=== PATIENT | female | born 1955 | race Caucasian/White ===

== ENCOUNTER 2017-05-27 13:24 | Emergency (ER) | payer MEDICAID ==
[~2017-05-27] VITALS: Ht 165.1 cm; Wt 89.0 kg
[~2017-05-27 13:24] MED LIST: HYDR-4001 PO; HYDR-4009 PO; HYDR25TA PO; LISI-604 PO; METF500T4 PO; SIMV20TA6 PO
[2017-05-27] MEDS ORDERED: METHYLPREDNISOLONE SOD SUCC 125 MG/2 ML VIAL IV ONE (15:00)
[2017-05-27 16:48] VITALS: BP 107/68
== END 2017-05-27 16:51 | disposition home or self-care (01) ==
LOC: ER 13:24
DX: R07.89 Other chest pain (principal); R06.02 Shortness of breath; L53.9 Erythematous condition, unspecified; T38.0X5A Adverse effect of glucocorticoids and synthetic analogues, initial encounter; T41.3X5A Adverse effect of local anesthetics, initial encounter; I10 Essential (primary) hypertension; E11.9 Type 2 diabetes mellitus without complications; Z87.891 Personal history of nicotine dependence; Y92.89 Other specified places as the place of occurrence of the external cause
CPT/HCPCS: 93005; 96374; 99284; J2930; Z7610

== ENCOUNTER → 2018-01-19 | Day surgery (SDC) | payer MEDICARE, MEDICAID ==
[~2018-01-19] VITALS: Ht 165.1 cm; Wt 87.1 kg
[~2018-01-19] MED LIST changes: +BUPIVACAINE HCL/EPINEPHRINE/PF 0.5%/0.0005 10ML ONE; +FENTANYL CITRATE/PF 50MCG/ML 2ML VIAL ONE; +LACTATED RINGERS 1,000 ML IV SCH; +MORPHINE SULFATE 4 MG/ML CPJ (NOT FOR IM USE) IV ONE; +MORPHINE SULFATE/PF 1MG/ML 10ML AMP ONE; +PROPOFOL 200MG/20ML VIAL IV ONE; +SODIUM CHLORIDE 0.9% 1,000 ML IV SCH
[2018-01-19] MEDS: MORPHINE SULFATE 4 MG/ML CPJ (NOT FOR IM USE) IV PRN ×2 (09:28→09:48)
[2018-01-19 09:48] VITALS: BP 124/80
== END | disposition home or self-care (01) ==
LOC: OR 05:29
PROVIDERS: ATTEND Orthopaedic Surgery
DX: M65.861 Other synovitis and tenosynovitis, right lower leg (principal); M94.261 Chondromalacia, right knee; I10 Essential (primary) hypertension; F41.8 Other specified anxiety disorders; E11.65 Type 2 diabetes mellitus with hyperglycemia; Z79.84 Long term (current) use of oral hypoglycemic drugs; Z96.652 Presence of left artificial knee joint; Z87.891 Personal history of nicotine dependence; Z79.899 Other long term (current) drug therapy; Z90.49 Acquired absence of other specified parts of digestive tract
CPT/HCPCS: 29877; 82962; 88304; 88311; 97116; 97162; J0171; J2270; J3010; J7030; L1830; J2274; J2704

== ENCOUNTER 2018-12-15 23:42 | Inpatient (IN) | payer MEDICARE, MEDICAID ==
[~2018-12-15] VITALS: Ht 165.1 cm; Wt 87.1 kg
[~2018-12-15 23:42] MED LIST changes: -BUPIVACAINE HCL/EPINEPHRINE/PF 0.5%/0.0005 10ML ONE; -FENTANYL CITRATE/PF 50MCG/ML 2ML VIAL ONE; -LACTATED RINGERS 1,000 ML IV SCH; +METF-414 PO; -METF500T4 PO; -MORPHINE SULFATE 4 MG/ML CPJ (NOT FOR IM USE) IV ONE; -MORPHINE SULFATE/PF 1MG/ML 10ML AMP ONE; -PROPOFOL 200MG/20ML VIAL IV ONE; -SODIUM CHLORIDE 0.9% 1,000 ML IV SCH
[2018-12-16 03:21] LABS: BASOPHILS % 0.9 % (0.0-2.0); EOSINOPHILS % 2.7 % (0.0-5.0); HEMATOCRIT. 37.4 % (36.0-48.0); HEMOGLOBIN. 12.8 g/dL (12.0-16.0); LYMPHOCYTES % 25.2 % (20.0-50.0); MEAN CORPUSCULAR HEMOGLOBIN 31.8 pg (28.0-32.0); MEAN CORPUSCULAR VOLUME 93.2 fL (81.0-99.0); MEAN PLATELET VOLUME 9.5 fl (7.4-10.4); MONOCYTES % 8.8 % (2.0-8.0); NEUTROPHILS % 62.4 % (40.0-76.0); PLATELET 164 x1000/uL (130-400); RED BLOOD CELL COUNT 4.01 mill/uL (4.2-5.4); RED CELL DISTRIBUTION WIDTH 13.3 % (11.6-14.6)
[2018-12-16 03:24] LABS: CHLORIDE 106 mEq/L (98-107)
[2018-12-16 03:29] LABS: ETHANOL BLOOD < 10 mg/dL
[2018-12-16] MEDS ORDERED: MORPHINE SULFATE 4 MG/ML CPJ (NOT FOR IM USE) IV ONE (04:45)
[2018-12-16] MEDS ORDERED: ACETAMINOPHEN 325MG TABLET PO PRN (07:45)
[2018-12-16] MEDS ORDERED: DIPHENHYDRAMINE 50MG/ML VIAL IV PRN (07:45)
[2018-12-16] MEDS ORDERED: DOCUSATE SODIUM 100MG CAPSULE PO PRN (07:45)
[2018-12-16] MEDS ORDERED: HYDRALAZINE 20MG/ML VIAL IV PRN (07:45)
[2018-12-16] MEDS ORDERED: GUAIFENESIN 200MG/10ML SUGAR FREE UDC PO PRN (07:45)
[2018-12-16] MEDS ORDERED: IPRATROPIUM/ALBUTEROL 0.5-3(2.5)MG/3ML NEB INH PRN (07:45)
[2018-12-16] MEDS ORDERED: DEXTROSE 50% WATER 50ML SYRINGE IV PRN (07:45)
[2018-12-16] MEDS ORDERED: CLONIDINE 0.1MG TABLET PO PRN (07:45)
[2018-12-16] MEDS ORDERED: LORAZEPAM 2MG/ML CPJ IV PRN (07:45)
[2018-12-16] MEDS ORDERED: ONDANSETRON HCL 4MG/2ML INJ IV PRN (07:45)
[2018-12-16] MEDS ORDERED: MAGNESIUM/ALUMINUM HYDROXIDE/SIMETHICONE 30ML UDC PO PRN (07:45)
[2018-12-16] MEDS: HYDROCODONE/ACETAMINOPHEN 10/325MG TABLET PO PRN ×3 (09:50→22:48)
[2018-12-16] MEDS ORDERED: GADOBENATE DIMEGLUMINE 529 MG/ML 10ML IV ONE (11:55)
[2018-12-16] MEDS ORDERED: HYDROMORPHONE HCL/PF 2MG/ML CPJ IV PRN (17:00)
[2018-12-16 21:00] VITALS: BP 126/76
[2018-12-16] MEDS: INSULIN LISPRO 100 UNITS/ML SUBCUT SCH (21:00)
[2018-12-16] MEDS ORDERED: NA PHOS,M-B/NA PHOS,DI-BA ENEMA 118ML PR PRN (21:00)
[2018-12-16] MEDS: BLOOD SUGAR DIAGNOSTIC STRIP TEST SCH (21:00)
[2018-12-16] MEDS ORDERED: ENOXAPARIN 40MG/0.4ML SYR SUBCUT SCH (21:00)
[2018-12-16 21:42] VITALS: BP 136/66
[2018-12-17] VITALS: BP 127/76
[2018-12-17 04:00] VITALS: BP 121/75
[2018-12-17] MEDS: SODIUM CHLORIDE 0.9% INJ 3ML FLUSH IVF SCH ×3 (06:36→13:19)
[2018-12-17] MEDS: HYDROCODONE/ACETAMINOPHEN 10/325MG TABLET PO PRN ×3 (06:36→18:48)
[2018-12-17] MEDS: BLOOD SUGAR DIAGNOSTIC STRIP TEST SCH ×4 (07:20→21:00)
[2018-12-17] MEDS: INSULIN LISPRO 100 UNITS/ML SUBCUT SCH ×4 (07:50→21:00)
[2018-12-17 08:00] VITALS: BP 119/74
[2018-12-17] MEDS: ASPIRIN 81MG EC TABLET PO SCH (09:37)
[2018-12-17 10:01] LABS: BASOPHILS % 0.6 % (0.0-2.0); EOSINOPHILS % 1.9 % (0.0-5.0); HEMATOCRIT. 34.7 % (36.0-48.0); HEMOGLOBIN. 12.3 g/dL (12.0-16.0); MEAN CORPUSCULAR HEMOGLOBIN 32.8 pg (28.0-32.0); MEAN CORPUSCULAR VOLUME 92.7 fL (81.0-99.0); MEAN PLATELET VOLUME 10.5 fl (7.4-10.4); MONOCYTES % 7.6 % (2.0-8.0); NEUTROPHILS % 68.9 % (40.0-76.0); PLATELET 140 x1000/uL (130-400); RED BLOOD CELL COUNT 3.74 mill/uL (4.2-5.4); RED CELL DISTRIBUTION WIDTH 13.2 % (11.6-14.6)
[2018-12-17 10:12] LABS: CHLORIDE 103 mEq/L (98-107)
[2018-12-17 12:47] VITALS: BP 119/70
[2018-12-17 16:00] VITALS: BP 121/68
[2018-12-17 20:00] VITALS: BP 133/73
[2018-12-17] MEDS: ENOXAPARIN 30MG/0.3ML SYR SUBCUT SCH (22:29)
[2018-12-18] VITALS: BP 113/74
[2018-12-18 06:00] VITALS: BP 102/68
[2018-12-18] MEDS: BLOOD SUGAR DIAGNOSTIC STRIP TEST SCH ×3 (07:20→17:53)
[2018-12-18] MEDS: INSULIN LISPRO 100 UNITS/ML SUBCUT SCH ×3 (07:50→17:50)
[2018-12-18 08:00] VITALS: BP 107/64
[2018-12-18] MEDS: ENOXAPARIN 30MG/0.3ML SYR SUBCUT SCH (08:57)
[2018-12-18] MEDS: ASPIRIN 81MG EC TABLET PO SCH (08:57)
[2018-12-18] MEDS: HYDROCODONE/ACETAMINOPHEN 10/325MG TABLET PO PRN (11:11)
[2018-12-18 12:00] VITALS: BP 127/76
[2018-12-18 12:09] VITALS: BP 121/76
[2018-12-18 16:26] VITALS: BP 114/65
== END 2018-12-18 18:05 | disposition home health service (06) | DRG 552 ==
LOC: ER 23:42 → 6EST 12-16 04:50 → ENRESERV 12-16 19:14
PROVIDERS: ADMIT Internal Medicine; ATTEND Internal Medicine
DX: M54.40 Lumbago with sciatica, unspecified side (principal); C79.51 Secondary malignant neoplasm of bone; G89.29 Other chronic pain; E11.39 Type 2 diabetes mellitus with other diabetic ophthalmic complication; H42 Glaucoma in diseases classified elsewhere; Z96.659 Presence of unspecified artificial knee joint; I10 Essential (primary) hypertension; E78.5 Hyperlipidemia, unspecified; R74.0 Nonspecific elevation of levels of transaminase and lactic acid dehydrogenase [LDH]; W18.30XA Fall on same level, unspecified, initial encounter; Y93.89 Activity, other specified; Y92.89 Other specified places as the place of occurrence of the external cause; Y99.8 Other external cause status; Z85.3 Personal history of malignant neoplasm of breast; Z92.21 Personal history of antineoplastic chemotherapy; Z92.3 Personal history of irradiation; Z87.891 Personal history of nicotine dependence; Z88.8 Allergy status to other drugs, medicaments and biological substances; Z79.899 Other long term (current) drug therapy
CPT/HCPCS: 36415; 72100; 72156; 72157; 72158; 73610; 73630; 80320; 82962; 93970; 97163; 99285; A9577; J1650; J1815; G0480

== ENCOUNTER 2018-12-22 11:48 | Inpatient (IN) | payer MEDICARE, MEDICAID ==
[~2018-12-22] VITALS: Ht 162.6 cm; Wt 94.3 kg
[2018-12-22 12:52] LABS: BASOPHILS % 0.8 % (0.0-2.0); HEMATOCRIT. 27.2 % (36.0-48.0); HEMOGLOBIN. 9.6 g/dL (12.0-16.0); LYMPHOCYTES % 18.4 % (20.0-50.0); MEAN CORPUSCULAR HEMOGLOBIN 32.5 pg (28.0-32.0); MONOCYTES % 6.9 % (2.0-8.0); NEUTROPHILS % 71.9 % (40.0-76.0); PLATELET 114 x1000/uL (130-400); RED BLOOD CELL COUNT 2.96 mill/uL (4.2-5.4); RED CELL DISTRIBUTION WIDTH 13.3 % (11.6-14.6)
[2018-12-22 12:56] LABS: CHLORIDE 118 mEq/L (98-107)
[2018-12-22] MEDS ORDERED: MORPHINE SULFATE 4 MG/ML CPJ (NOT FOR IM USE) IV ONE (13:00)
[2018-12-22 13:02] LABS: CLARITY URINE CLOUDY (CLEAR); COLOR URINE YELLOW (YELLOW); KETONES URINE NEGATIVE (NEGATIVE); LEUKOCYTE ESTERASE URINE TRACE (NEGATIVE); NITRITE URINE NEGATIVE (NEGATIVE); OCCULT BLOOD URINE 1+ (NEGATIVE); PROTEIN URINE NEGATIVE (NEGATIVE); SPECIFIC GRAVITY URINE 1.014 (1.005-1.030); UROBILINOGEN URINE 0.2 E.U./dL (0.2-1.0)
[2018-12-22 13:07] LABS: INR 1.2; PROTHROMBIN TIME 12.3 sec (9.6-11.0)
[2018-12-22] MEDS ORDERED: POTASSIUM CHLORIDE 20MEQ TABLET SR PO ONE (13:30)
[2018-12-22] MEDS: DEXT 5%/LACTATED RINGERS 1,000 ML IV SCH (13:33)
[2018-12-22] MEDS ORDERED: NITROGLYCERIN 0.4MG TABLET SL SL PRN (14:45)
[2018-12-22] MEDS ORDERED: GUAIFENESIN 200MG/10ML SUGAR FREE UDC PO PRN (14:45)
[2018-12-22] MEDS ORDERED: ONDANSETRON HCL 4MG/2ML INJ IV PRN (14:45)
[2018-12-22] MEDS ORDERED: DEXTROSE 50% WATER 50ML SYRINGE IV PRN (14:45)
[2018-12-22] MEDS ORDERED: CLONIDINE 0.1MG TABLET PO PRN (14:45)
[2018-12-22] MEDS ORDERED: KETOROLAC 15MG/ML VIAL IV PRN (14:45)
[2018-12-22] MEDS ORDERED: IPRATROPIUM/ALBUTEROL 0.5-3(2.5)MG/3ML NEB INH PRN (14:45)
[2018-12-22] MEDS ORDERED: DOCUSATE SODIUM 100MG CAPSULE PO PRN (14:45)
[2018-12-22] MEDS ORDERED: TRAMADOL 50MG TABLET PO PRN (14:45)
[2018-12-22] MEDS ORDERED: ACETAMINOPHEN 325MG TABLET PO PRN (14:45)
[2018-12-22] MEDS ORDERED: LORAZEPAM 0.5MG TABLET PO PRN (14:45)
[2018-12-22] MEDS ORDERED: MAGNESIUM/ALUMINUM HYDROXIDE/SIMETHICONE 30ML UDC PO PRN (14:45)
[2018-12-22] MEDS ORDERED: ZOLPIDEM TARTRATE 5MG TABLET PO PRN (14:45)
[2018-12-22] MEDS ORDERED: MORPHINE SULFATE 4 MG/ML CPJ (NOT FOR IM USE) IV PRN (14:45)
[2018-12-22 15:57] VITALS: BP 153/78
[2018-12-22 16:00] VITALS: BP 153/78
[2018-12-22] MEDS ORDERED: BISACODYL 5MG TABLET PO PRN (16:15)
[2018-12-22] MEDS ORDERED: ENOXAPARIN 40MG/0.4ML SYR SUBCUT SCH (17:00)
[2018-12-22] MEDS: BLOOD SUGAR DIAGNOSTIC STRIP TEST SCH ×2 (17:20→20:56)
[2018-12-22] MEDS: INSULIN LISPRO 100 UNITS/ML SUBCUT SCH ×2 (17:50→20:57)
[2018-12-22] MEDS ORDERED: CEFTRIAXONE 1 G PREMIX 50 ML IV SCH (18:00)
[2018-12-22 19:58] VITALS: BP 143/79
[2018-12-22] MEDS: FAMOTIDINE 20MG TABLET PO SCH (20:56)
[2018-12-22] MEDS: HYDROCODONE/ACETAMINOPHEN 10/325MG TABLET PO PRN (20:56)
[2018-12-23] VITALS (41 sets, daily range): BP systolic 2–165; BP diastolic 0–136
[2018-12-23] MEDS: DEXT 5%/LACTATED RINGERS 1,000 ML IV SCH ×3 (00:41→22:08)
[2018-12-23] MEDS: BLOOD SUGAR DIAGNOSTIC STRIP TEST SCH ×4 (05:33→20:35)
[2018-12-23] MEDS ORDERED: NORMAL SALINE 0.9% 10 ML SYR ONE (06:20)
[2018-12-23] MEDS ORDERED: THROMBIN (BOVINE) 5000 UNITS/VIAL TOP ONE (06:20)
[2018-12-23] MEDS ORDERED: LIDOCAINE HCL/EPINEPHRINE 1%-EPI 1:100,000 20 ML VIAL ONE (06:21)
[2018-12-23] MEDS ORDERED: BACITRACIN 50,000 UNITS/VIAL ONE (06:21)
[2018-12-23 06:49] LABS: CHLORIDE 107 mEq/L (98-107)
[2018-12-23] MEDS ORDERED: MIDAZOLAM HCL 2 MG/2 ML VIAL ONE (06:54)
[2018-12-23] MEDS ORDERED: PROPOFOL 200MG/20ML VIAL IV ONE (06:54)
[2018-12-23] MEDS ORDERED: GLYCOPYRROLATE 0.2 MG/ML 2ML VIAL ONE ×2 (06:54→09:49)
[2018-12-23] MEDS ORDERED: NEOSTIGMINE METHYLSULFATE 1MG/ML 10 ML VIAL ONE (06:54)
[2018-12-23] MEDS ORDERED: FENTANYL CITRATE/PF 50MCG/ML 2ML VIAL ONE (06:54)
[2018-12-23] MEDS ORDERED: ROCURONIUM BROMIDE 10MG/ML VIAL 5ML IV ONE (06:54)
[2018-12-23] MEDS ORDERED: ONDANSETRON HCL 4MG/2ML INJ ONE (06:55)
[2018-12-23] MEDS ORDERED: DEXAMETHASONE 4MG/ML 1ML VIAL ONE (06:55)
[2018-12-23] MEDS ORDERED: LIDOCAINE HCL/PF 1% 10 MG/ML 5ML VIAL ONE (06:55)
[2018-12-23] MEDS ORDERED: HYDROMORPHONE HCL/PF 2MG/ML (OR) ONE ×2 (07:54→09:38)
[2018-12-23] MEDS ORDERED: HYDROMORPHONE HCL/PF 2MG/ML CPJ IV PRN (08:45)
[2018-12-23] MEDS ORDERED: ONDANSETRON HCL 4MG/2ML INJ IV PRN (08:45)
[2018-12-23] MEDS ORDERED: MEPERIDINE HCL/PF 25MG/ML CPJ IV PRN (08:45)
[2018-12-23] MEDS ORDERED: LABETALOL 5MG/ML SYR 20 MG/4 ML SYRINGE IV PRN (08:45)
[2018-12-23] MEDS: FAMOTIDINE 20MG TABLET PO SCH ×2 (09:00→20:34)
[2018-12-23] MEDS ORDERED: CEFAZOLIN SODIUM 1000MG/VIAL ONE (09:42)
[2018-12-23] MEDS ORDERED: SODIUM CHLORIDE 0.9% 10ML VIAL ONE (09:42)
[2018-12-23] MEDS ORDERED: LABETALOL HCL 5MG/ML VIAL 20ML IV ONE (09:55)
[2018-12-23] MEDS ORDERED: MORPHINE SULFATE 4 MG/ML CPJ (NOT FOR IM USE) IV PRN (10:00)
[2018-12-23] MEDS ORDERED: NICARDIPINE 100 MG in SODIUM CHLORIDE 0.9% 60 ML IV PRN (10:00)
[2018-12-23] MEDS: DOCUSATE SODIUM 100MG CAPSULE PO SCH (10:45)
[2018-12-23] MEDS ORDERED: NALOXONE INJ IV PRN (10:45)
[2018-12-23] MEDS ORDERED: HYDROMORPHONE PCA 10MG/50ML IV PRN (10:45)
[2018-12-23] MEDS ORDERED: ONDANSETRON INJ IV PRN (10:45)
[2018-12-23] MEDS ORDERED: DIPHENHYDRAMINE INJ IV PRN (10:45)
[2018-12-23] MEDS: INSULIN LISPRO 100 UNITS/ML SUBCUT SCH ×3 (11:59→20:36)
[2018-12-23] MEDS ORDERED: CEFAZOLIN SODIUM 1000MG/VIAL IV SCH (14:00)
[2018-12-23] MEDS: CEFAZOLIN 1000MG PREMIX 50 ML IV SCH ×2 (14:17→21:29)
[2018-12-23] MEDS: CEFTRIAXONE 1 G PREMIX 50 ML IV SCH (18:55)
[2018-12-24] VITALS (44 sets, daily range): BP systolic 73–279; BP diastolic 27–279
[2018-12-24] MEDS: DEXT 5%/LACTATED RINGERS 1,000 ML IV SCH ×3 (01:22→20:50)
[2018-12-24] MEDS: BLOOD SUGAR DIAGNOSTIC STRIP TEST SCH ×4 (06:39→20:49)
[2018-12-24 06:54] LABS: BASOPHILS % 0.3 % (0.0-2.0); EOSINOPHILS % 0.1 % (0.0-5.0); HEMATOCRIT. 27.9 % (36.0-48.0); HEMOGLOBIN. 9.9 g/dL (12.0-16.0); LYMPHOCYTES % 16.1 % (20.0-50.0); MEAN CORPUSCULAR HEMOGLOBIN 32.2 pg (28.0-32.0); MEAN PLATELET VOLUME 10.1 fl (7.4-10.4); MONOCYTES % 8.2 % (2.0-8.0); NEUTROPHILS % 75.3 % (40.0-76.0); PLATELET 118 x1000/uL (130-400); RED BLOOD CELL COUNT 3.07 mill/uL (4.2-5.4); RED CELL DISTRIBUTION WIDTH 12.9 % (11.6-14.6)
[2018-12-24 07:06] LABS: CHLORIDE 109 mEq/L (98-107)
[2018-12-24] MEDS: CEFAZOLIN 1000MG PREMIX 50 ML IV SCH ×3 (07:16→21:41)
[2018-12-24] MEDS: INSULIN LISPRO 100 UNITS/ML SUBCUT SCH ×4 (07:17→20:49)
[2018-12-24] MEDS: FAMOTIDINE 20MG TABLET PO SCH ×2 (09:08→20:48)
[2018-12-24] MEDS: DOCUSATE SODIUM 100MG CAPSULE PO SCH (09:08)
[2018-12-24] MEDS: HYDROCODONE/ACETAMINOPHEN 10/325MG TABLET PO PRN ×2 (13:09→20:48)
[2018-12-24] MEDS: CEFTRIAXONE 1 G PREMIX 50 ML IV SCH (17:17)
[2018-12-25] VITALS (18 sets, daily range): BP systolic 98–140; BP diastolic 36–98
[2018-12-25] MEDS: BLOOD SUGAR DIAGNOSTIC STRIP TEST SCH ×4 (05:54→21:00)
[2018-12-25] MEDS: CEFAZOLIN 1000MG PREMIX 50 ML IV SCH ×2 (06:11→13:56)
[2018-12-25] MEDS: INSULIN LISPRO 100 UNITS/ML SUBCUT SCH ×5 (06:12→21:00)
[2018-12-25] MEDS: DOCUSATE SODIUM 100MG CAPSULE PO SCH (09:46)
[2018-12-25] MEDS: FAMOTIDINE 20MG TABLET PO SCH ×2 (09:46→21:12)
[2018-12-25] MEDS: HYDROCODONE/ACETAMINOPHEN 10/325MG TABLET PO PRN ×2 (09:52→18:29)
[2018-12-25] MEDS ORDERED: MORPHINE SULFATE 4 MG/ML CPJ (NOT FOR IM USE) IV SCH (10:30)
[2018-12-25] MEDS ORDERED: LIDOCAINE HCL 1% 20ML VIAL (Pyxis) INJ ONE (10:41)
[2018-12-25] MEDS: CEFTRIAXONE 1 G PREMIX 50 ML IV SCH (18:12)
[2018-12-26] VITALS: BP 129/75
[2018-12-26 04:00] VITALS: BP 138/81
[2018-12-26] MEDS: HYDROCODONE/ACETAMINOPHEN 10/325MG TABLET PO PRN ×3 (05:32→17:46)
[2018-12-26] MEDS: BLOOD SUGAR DIAGNOSTIC STRIP TEST SCH ×4 (06:40→21:00)
[2018-12-26] MEDS: INSULIN LISPRO 100 UNITS/ML SUBCUT SCH ×4 (07:26→21:00)
[2018-12-26 08:00] VITALS: BP 141/73
[2018-12-26] MEDS: FAMOTIDINE 20MG TABLET PO SCH ×2 (08:10→21:22)
[2018-12-26] MEDS: DOCUSATE SODIUM 100MG CAPSULE PO SCH (08:10)
[2018-12-26 12:00] VITALS: BP 141/73
[2018-12-26 16:00] VITALS: BP 133/72
[2018-12-26] MEDS: CEFTRIAXONE 1 G PREMIX 50 ML IV SCH (17:28)
[2018-12-26 20:00] VITALS: BP 130/80
[2018-12-27] VITALS: BP 113/65
[2018-12-27 04:00] VITALS: BP 121/63
[2018-12-27] MEDS: HYDROCODONE/ACETAMINOPHEN 10/325MG TABLET PO PRN ×3 (05:10→21:50)
[2018-12-27] MEDS: INSULIN LISPRO 100 UNITS/ML SUBCUT SCH ×4 (07:50→21:00)
[2018-12-27] MEDS: BLOOD SUGAR DIAGNOSTIC STRIP TEST SCH ×4 (07:57→21:33)
[2018-12-27 08:00] VITALS: BP 117/65
[2018-12-27] MEDS: DOCUSATE SODIUM 100MG CAPSULE PO SCH (08:45)
[2018-12-27] MEDS: FAMOTIDINE 20MG TABLET PO SCH ×2 (08:45→20:52)
[2018-12-27 12:00] VITALS: BP 134/85
[2018-12-27 16:00] VITALS: BP 137/62
[2018-12-27] MEDS: CEFTRIAXONE 1 G PREMIX 50 ML IV SCH (18:30)
[2018-12-27 20:00] VITALS: BP 127/69
[2018-12-27] MEDS: LACTULOSE 20G/30ML UDC PO SCH (21:49)
[2018-12-28] VITALS: BP 104/61
[2018-12-28] MEDS: BLOOD SUGAR DIAGNOSTIC STRIP TEST SCH ×4 (06:32→21:00)
[2018-12-28] MEDS: INSULIN LISPRO 100 UNITS/ML SUBCUT SCH ×4 (06:33→20:57)
[2018-12-28] MEDS: LACTULOSE 20G/30ML UDC PO SCH ×3 (06:43→20:38)
[2018-12-28 08:00] VITALS: BP 130/75
[2018-12-28] MEDS: DOCUSATE SODIUM 100MG CAPSULE PO SCH (08:26)
[2018-12-28] MEDS: FAMOTIDINE 20MG TABLET PO SCH ×2 (08:26→20:37)
[2018-12-28] MEDS: HYDROCODONE/ACETAMINOPHEN 10/325MG TABLET PO PRN (08:27)
[2018-12-28] MEDS ORDERED: NA PHOS,M-B/NA PHOS,DI-BA ENEMA 118ML PR SCH (11:00)
[2018-12-28 12:00] VITALS: BP 153/75
[2018-12-28 16:00] VITALS: BP 113/64
[2018-12-28] MEDS: CEFTRIAXONE 1 G PREMIX 50 ML IV SCH (17:49)
[2018-12-28 20:00] VITALS: BP 158/85
[2018-12-29] VITALS (7 sets, daily range): BP systolic 103–138; BP diastolic 55–79
[2018-12-29] MEDS: LACTULOSE 20G/30ML UDC PO SCH ×2 (06:00→15:26)
[2018-12-29] MEDS: BLOOD SUGAR DIAGNOSTIC STRIP TEST SCH ×3 (07:20→17:20)
[2018-12-29] MEDS: INSULIN LISPRO 100 UNITS/ML SUBCUT SCH ×3 (07:50→17:50)
[2018-12-29] MEDS: FAMOTIDINE 20MG TABLET PO SCH (08:54)
[2018-12-29] MEDS: DOCUSATE SODIUM 100MG CAPSULE PO SCH (08:54)
[2018-12-29] MEDS: HYDROCODONE/ACETAMINOPHEN 10/325MG TABLET PO PRN ×2 (13:40→18:56)
== END 2018-12-29 19:00 | disposition short-term general hospital (02) | DRG 29 ==
LOC: ER 11:48 → 6WST 13:17 → SUPCPDRO 14:34 → ENRESERV 15:22 → MICUNO 12-23 10:20 → 6EST 12-25 17:00
PROVIDERS: ADMIT Internal Medicine; ATTEND Internal Medicine
PROC: 00NX0ZZ Release Thoracic Spinal Cord, Open Approach (ICD-10-PCS; principal; 2018-12-25)
PROC: 05HA33Z Insertion of Infusion Device into Left Brachial Vein, Percutaneous Approach (ICD-10-PCS; 2018-12-25)
PROC: B51N1ZA Fluoroscopy of Left Upper Extremity Veins using Low Osmolar Contrast, Guidance (ICD-10-PCS; 2018-12-25)
PROC: B54NZZA Ultrasonography of Left Upper Extremity Veins, Guidance (ICD-10-PCS; 2018-12-25)
PROC: 4A11X4G Monitoring of Peripheral Nervous Electrical Activity, Intraoperative, External Approach (ICD-10-PCS; 2018-12-25)
DX: C79.49 Secondary malignant neoplasm of other parts of nervous system (principal); E87.0 Hyperosmolality and hypernatremia; N39.0 Urinary tract infection, site not specified; G82.20 Paraplegia, unspecified; G95.29 Other cord compression; C79.51 Secondary malignant neoplasm of bone; J84.9 Interstitial pulmonary disease, unspecified; I10 Essential (primary) hypertension; E83.51 Hypocalcemia; E87.6 Hypokalemia; E11.65 Type 2 diabetes mellitus with hyperglycemia; C50.919 Malignant neoplasm of unspecified site of unspecified female breast; E66.9 Obesity, unspecified; F41.9 Anxiety disorder, unspecified; D63.8 Anemia in other chronic diseases classified elsewhere; M48.04 Spinal stenosis, thoracic region; M48.07 Spinal stenosis, lumbosacral region; D69.6 Thrombocytopenia, unspecified; E78.00 Pure hypercholesterolemia, unspecified; J44.9 Chronic obstructive pulmonary disease, unspecified; K59.00 Constipation, unspecified; F17.210 Nicotine dependence, cigarettes, uncomplicated; Z96.659 Presence of unspecified artificial knee joint; Z79.4 Long term (current) use of insulin; Z82.49 Family history of ischemic heart disease and other diseases of the circulatory system; Z83.3 Family history of diabetes mellitus; Z85.3 Personal history of malignant neoplasm of breast; Z90.10 Acquired absence of unspecified breast and nipple; Z92.21 Personal history of antineoplastic chemotherapy; Z92.3 Personal history of irradiation; Z98.1 Arthrodesis status; Z68.35 Body mass index [BMI] 35.0-35.9, adult
CPT/HCPCS: 36415; 36569; 71045; 72070; 72146; 76000; 76937; 80048; 82962; 83036; 86850; 86900; 86920; 88304; 88305; 88311; 88331; 93005; 93970; 95925; 95926; 95928; 95929; 96374; 97110; 97112; 97116; 97162; 97166; 97530; 97535; 99285; C1725; C1769; C1893; J0690; J0696; J1100; J1170; J1650; J1815; J2250; J2270; J2405; J2704; J2710; J3010; J3490; J7050; L3908

== ENCOUNTER 2019-03-05 13:25 | Emergency (ER) | payer MEDICARE, MEDICAID ==
[~2019-03-05] VITALS: Ht 167.6 cm; Wt 79.0 kg
[2019-03-05] MEDS ORDERED: MAGNESIUM/ALUMINUM HYDROXIDE/SIMETHICONE 30ML UDC PO STA (15:36)
[2019-03-05] MEDS ORDERED: SODIUM CHLORIDE 0.9% 500 ML IV ONE (15:36)
[2019-03-05] MEDS ORDERED: VISCOUS LIDOCAINE 2% 15 ML UDC PO STA (15:36)
[2019-03-05 16:12] LABS: CHLORIDE 110 mEq/L (98-107)
[2019-03-05 16:18] LABS: HEMATOCRIT. 33.8 % (36.0-48.0); HEMOGLOBIN. 11.5 g/dL (12.0-16.0); MEAN CORPUSCULAR HEMOGLOBIN 31.8 pg (28.0-32.0); MEAN CORPUSCULAR VOLUME 93.2 fL (81.0-99.0); MEAN PLATELET VOLUME 9.5 fl (7.4-10.4); PLATELET 124 x1000/uL (130-400); RED BLOOD CELL COUNT 3.63 mill/uL (4.2-5.4); RED CELL DISTRIBUTION WIDTH 19.5 % (11.6-14.6)
[2019-03-05 17:34] LABS: PLATELET ESTIMATE DECREASED
[2019-03-05 19:15] VITALS: BP 117/68
== END 2019-03-05 20:11 | disposition home or self-care (01) ==
LOC: ER 13:25
DX: C50.919 Malignant neoplasm of unspecified site of unspecified female breast (principal); C79.51 Secondary malignant neoplasm of bone; R13.19 Other dysphagia; I10 Essential (primary) hypertension; E11.9 Type 2 diabetes mellitus without complications; Z98.890 Other specified postprocedural states; Z79.84 Long term (current) use of oral hypoglycemic drugs; Z88.8 Allergy status to other drugs, medicaments and biological substances
CPT/HCPCS: 36415; 71045; 74176; 80053; 85025; 99284; J7030

== ENCOUNTER 2020-04-22 10:46 | Inpatient (IN) | payer MEDICARE, MEDICAID ==
[~2020-04-22] VITALS: Ht 165.1 cm; Wt 86.6 kg
[~2020-04-22 10:46] MED LIST changes: +AM250 PO; +ANAS5POW2 *; +SIMV-43 PO; -SIMV20TA6 PO; +SIMV80TA90 PO
[2020-04-22 11:24] LABS: HEMATOCRIT. 25.3 % (36.0-48.0); HEMOGLOBIN. 9.1 g/dL (12.0-16.0); MEAN CORPUSCULAR VOLUME 97.4 fL (81.0-99.0); MEAN PLATELET VOLUME 11.1 fl (7.4-10.4); PLATELET 154 x1000/uL (130-400); RED CELL DISTRIBUTION WIDTH 13.7 % (11.6-14.6)
[2020-04-22 11:30] LABS: CHLORIDE 93 mEq/L (98-107)
[2020-04-22] MEDS ORDERED: CEFTRIAXONE 1 G PREMIX 50 ML IV ONE (12:15)
[2020-04-22] MEDS ORDERED: DOXYCYCLINE 100 MG in DEXT 5% WATER 100 ML IV SCH (12:15)
[2020-04-22] MEDS ORDERED: KETOROLAC 30MG/ML VIAL IV ONE (13:15)
[2020-04-22] MEDS ORDERED: LACTATED RINGERS 1,000 ML IV STA (13:25)
[2020-04-22 13:57] LABS: PLATELET ESTIMATE NORMAL
[2020-04-22] MEDS: SODIUM CHLORIDE 0.9% 1,000 ML IV SCH (14:45)
[2020-04-22] MEDS ORDERED: PIPERACILLIN/TAZOBACTAM 3.375 G in DEXT 5% WATER 100 ML IV SCH ×2 (16:00→23:00)
[2020-04-22] MEDS ORDERED: GUAIFENESIN 200MG/10ML SUGAR FREE UDC PO PRN (17:30)
[2020-04-22] MEDS ORDERED: DOCUSATE SODIUM 100MG CAPSULE PO PRN (17:30)
[2020-04-22] MEDS ORDERED: ONDANSETRON HCL 4MG/2ML INJ IV PRN (17:30)
[2020-04-22] MEDS ORDERED: ACETAMINOPHEN 325MG TABLET PO PRN ×2 (17:30)
[2020-04-22] MEDS ORDERED: LORAZEPAM 0.5MG TABLET PO PRN (17:30)
[2020-04-22] MEDS ORDERED: IPRATROPIUM/ALBUTEROL 0.5-3(2.5)MG/3ML NEB HHN PRN (17:30)
[2020-04-22] MEDS ORDERED: FILGRASTIM-TBO 480 MCG/0.8 ML SYRINGE SQ SCH (21:00)
[2020-04-23] VITALS: BP 97/68
[2020-04-23] MEDS: AZITHROMYCIN 500 MG in DEXT 5% WATER 250 ML IV SCH (02:11)
[2020-04-23 06:47] LABS: CHLORIDE 95 mEq/L (98-107)
[2020-04-23 07:05] LABS: HEMATOCRIT. 22.1 % (36.0-48.0); HEMOGLOBIN. 7.9 g/dL (12.0-16.0); MEAN CORPUSCULAR HEMOGLOBIN 34.7 pg (28.0-32.0); MEAN CORPUSCULAR VOLUME 97.2 fL (81.0-99.0); MEAN PLATELET VOLUME 11.5 fl (7.4-10.4); PLATELET 66 x1000/uL (130-400); RED BLOOD CELL COUNT 2.28 mill/uL (4.2-5.4); RED CELL DISTRIBUTION WIDTH 13.1 % (11.6-14.6)
[2020-04-23 08:00] VITALS: BP 83/50
[2020-04-23] MEDS: SODIUM CHLORIDE 0.9% 1,000 ML IV SCH ×2 (10:27→18:58)
[2020-04-23 12:00] VITALS: BP 88/54
[2020-04-23] MEDS ORDERED: POTASSIUM CHLORIDE 20MEQ TABLET SR PO NR (13:00)
[2020-04-23] MEDS: VANCOMYCIN 1 G PREMIX 200 ML IV SCH (15:36)
[2020-04-23 16:00] VITALS: BP 76/43
[2020-04-23] MEDS ORDERED: IOHEXOL-300 100 ML BOTTLE ONE (16:17)
[2020-04-23] MEDS: CEFEPIME 1,000 MG in DEXTROSE 5% WATER 50 ML IV SCH (16:59)
[2020-04-23] MEDS ORDERED: SODIUM CHLORIDE 0.9% 1,000 ML IV NR (18:52)
[2020-04-23 20:00] VITALS: BP 78/46
[2020-04-23] MEDS: FILGRASTIM-TBO 480 MCG/0.8 ML SYRINGE SQ SCH (22:09)
[2020-04-24] VITALS (8 sets, daily range): BP systolic 80–115; BP diastolic 48–65
[2020-04-24] MEDS: AZITHROMYCIN 500 MG in DEXT 5% WATER 250 ML IV SCH (00:09)
[2020-04-24] MEDS: HYDROCODONE/ACETAMINOPHEN 5/325MG TABLET PO PRN (01:36)
[2020-04-24] MEDS: VANCOMYCIN 1 G PREMIX 200 ML IV SCH ×2 (03:05→19:36)
[2020-04-24 05:09] LABS: HIV SCREEN 4G Non Reactive (Non Reactive)
[2020-04-24] MEDS: CEFEPIME 1,000 MG in DEXTROSE 5% WATER 50 ML IV SCH ×2 (05:55→19:35)
[2020-04-24 06:16] LABS: CHLORIDE 99 mEq/L (98-107)
[2020-04-24 06:21] LABS: INR 1.6; PARTIAL THROMBOPLASTIN TIME 35.9 sec (23.4-31.0)
[2020-04-24 06:22] LABS: HEMOGLOBIN. 7.3 g/dL (12.0-16.0); MEAN CORPUSCULAR HEMOGLOBIN 34.8 pg (28.0-32.0); MEAN CORPUSCULAR VOLUME 98.1 fL (81.0-99.0); MEAN PLATELET VOLUME 11.3 fl (7.4-10.4); RED CELL DISTRIBUTION WIDTH 13.5 % (11.6-14.6)
[2020-04-24 06:26] LABS: PHOSPHORUS 1.8 mg/dL (2.5-4.9)
[2020-04-24 06:47] LABS: HEMATOCRIT. 20.6 % (36.0-48.0); PLATELET 47 x1000/uL (130-400)
[2020-04-24] MEDS ORDERED: NOREPINEPHRINE 4MG/250ML PMX 250 ML IV ONE (08:15)
[2020-04-24] MEDS ORDERED: SODIUM CHLORIDE 0.9% 1,000 ML IV ONE (08:45)
[2020-04-24] MEDS ORDERED: POTASSIUM CHLORIDE 20MEQ TABLET SR PO NR (12:15)
[2020-04-24 12:21] LABS: PLATELET ESTIMATE DECREASED
[2020-04-24] MEDS ORDERED: ALBUMIN HUMAN 25GM/100ML (25%) IV NR (13:00)
[2020-04-24] MEDS: MIDODRINE HCL 2.5MG TABLET PO SCH ×2 (13:26→18:35)
[2020-04-24] MEDS ORDERED: POTASSIUM PHOS,M-BASIC-D-BASIC 30 MMOL in SODIUM CHLORIDE 0.9% 500 ML IV SCH (14:00)
[2020-04-24] MEDS ORDERED: NOREPINEPHRINE 4 MG in DEXTROSE 5% WATER 250 ML IV PRN (16:45)
[2020-04-24 17:48] LABS: PLATELET ESTIMATE MARKEDLY DECREASED
[2020-04-24] MEDS: FILGRASTIM-TBO 480 MCG/0.8 ML SYRINGE SQ SCH (22:52)
[2020-04-24] MEDS: SODIUM CHLORIDE 0.9% 1,000 ML IV SCH (22:52)
[2020-04-25] VITALS (18 sets, daily range): BP systolic 89–108; BP diastolic 46–65
[2020-04-25] MEDS: AZITHROMYCIN 500 MG in DEXT 5% WATER 250 ML IV SCH ×2 (00:16→23:09)
[2020-04-25] MEDS: VANCOMYCIN 1 G PREMIX 200 ML IV SCH ×2 (02:50→16:23)
[2020-04-25] MEDS: SODIUM CHLORIDE 0.9% 1,000 ML IV SCH ×3 (05:36→23:16)
[2020-04-25] MEDS: CEFEPIME 1,000 MG in DEXTROSE 5% WATER 50 ML IV SCH ×2 (05:36→18:07)
[2020-04-25 07:02] LABS: MEAN CORPUSCULAR HEMOGLOBIN 34.2 pg (28.0-32.0); MEAN CORPUSCULAR VOLUME 98.4 fL (81.0-99.0); MEAN PLATELET VOLUME 11.8 fl (7.4-10.4); RED BLOOD CELL COUNT 2.03 mill/uL (4.2-5.4); RED CELL DISTRIBUTION WIDTH 13.5 % (11.6-14.6)
[2020-04-25 07:37] LABS: CHLORIDE 105 mEq/L (98-107)
[2020-04-25 07:48] LABS: PHOSPHORUS 2.7 mg/dL (2.5-4.9)
[2020-04-25] MEDS: MIDODRINE HCL 2.5MG TABLET PO SCH (08:12)
[2020-04-25] MEDS ORDERED: SODIUM BICARBONATE 4% (2.4MEQ) 5ML VIAL IV ONE (08:13)
[2020-04-25] MEDS ORDERED: LIDOCAINE HCL 1% 20ML VIAL (Pyxis) INJ ONE (08:13)
[2020-04-25 08:27] LABS: HEMOGLOBIN. 6.9 g/dL (12.0-16.0); PLATELET 34 x1000/uL (130-400)
[2020-04-25] MEDS: MIDODRINE HCL 5MG TABLET PO SCH ×2 (12:20→18:07)
[2020-04-25 13:06] LABS: NUCLEATED RED BLOOD CELLS 10 /100 WBC; PLATELET ESTIMATE MARKEDLY DECREASED
[2020-04-25 17:35] LABS: HEMATOCRIT. 23.9 % (36.0-48.0); HEMOGLOBIN. 8.3 g/dL (12.0-16.0); MEAN CORPUSCULAR VOLUME 94.3 fL (81.0-99.0); MEAN PLATELET VOLUME 11.1 fl (7.4-10.4); RED BLOOD CELL COUNT 2.53 mill/uL (4.2-5.4); RED CELL DISTRIBUTION WIDTH 16.6 % (11.6-14.6)
[2020-04-25 17:48] LABS: PLATELET 30 x1000/uL (130-400)
[2020-04-25 18:47] LABS: PLATELET ESTIMATE MARKEDLY DECREASED
[2020-04-25] MEDS: FILGRASTIM-TBO 480 MCG/0.8 ML SYRINGE SQ SCH (21:18)
[2020-04-26] VITALS (15 sets, daily range): BP systolic 89–142; BP diastolic 50–77
[2020-04-26] MEDS: VANCOMYCIN 1 G PREMIX 200 ML IV SCH ×2 (03:20→16:04)
[2020-04-26 04:08] LABS: CA 27.29 12.4 U/mL (0.0-38.6)
[2020-04-26] MEDS: CEFEPIME 1,000 MG in DEXTROSE 5% WATER 50 ML IV SCH ×2 (05:09→17:38)
[2020-04-26 06:14] LABS: HEMATOCRIT. 22.2 % (36.0-48.0); HEMOGLOBIN. 7.6 g/dL (12.0-16.0); MEAN CORPUSCULAR HEMOGLOBIN 32.7 pg (28.0-32.0); MEAN CORPUSCULAR VOLUME 95.1 fL (81.0-99.0); RED BLOOD CELL COUNT 2.33 mill/uL (4.2-5.4)
[2020-04-26 06:38] LABS: PLATELET 19 x1000/uL (130-400)
[2020-04-26 06:59] LABS: CHLORIDE 106 mEq/L (98-107)
[2020-04-26 07:05] LABS: PHOSPHORUS 2.5 mg/dL (2.5-4.9)
[2020-04-26] MEDS: MULTIVITAMINS,THER W-MINERALS TABLET PO SCH (08:34)
[2020-04-26] MEDS: MIDODRINE HCL 5MG TABLET PO SCH ×3 (08:35→16:01)
[2020-04-26] MEDS: HYDROCODONE/ACETAMINOPHEN 5/325MG TABLET PO PRN (08:36)
[2020-04-26] MEDS ORDERED: POTASSIUM CHLORIDE 20MEQ/PACKET PO SCH (11:30)
[2020-04-26] MEDS: SODIUM CHLORIDE 0.9% 1,000 ML IV SCH (11:41)
[2020-04-26 14:11] LABS: NUCLEATED RED BLOOD CELLS 2 /100 WBC; PLATELET ESTIMATE MARKEDLY DECREASED
[2020-04-26] MEDS: FILGRASTIM-TBO 480 MCG/0.8 ML SYRINGE SQ SCH (22:40)
[2020-04-27] VITALS (23 sets, daily range): BP systolic 93–128; BP diastolic 56–79
[2020-04-27] MEDS: AZITHROMYCIN 500 MG in DEXT 5% WATER 250 ML IV SCH (00:17)
[2020-04-27] MEDS: SODIUM CHLORIDE 0.9% 1,000 ML IV SCH (02:19)
[2020-04-27] MEDS: VANCOMYCIN 1 G PREMIX 200 ML IV SCH ×2 (02:25→18:10)
[2020-04-27] MEDS: CEFEPIME 1,000 MG in DEXTROSE 5% WATER 50 ML IV SCH ×2 (06:17→18:09)
[2020-04-27 07:43] LABS: HEMOGLOBIN. 7.1 g/dL (12.0-16.0); MEAN CORPUSCULAR HEMOGLOBIN 33.4 pg (28.0-32.0); MEAN CORPUSCULAR VOLUME 95.3 fL (81.0-99.0); MEAN PLATELET VOLUME 9.9 fl (7.4-10.4); RED BLOOD CELL COUNT 2.14 mill/uL (4.2-5.4)
[2020-04-27 07:51] LABS: CHLORIDE 108 mEq/L (98-107)
[2020-04-27 07:56] LABS: PHOSPHORUS 2.8 mg/dL (2.5-4.9)
[2020-04-27 08:11] LABS: HEMATOCRIT. 20.4 % (36.0-48.0); PLATELET 15 x1000/uL (130-400)
[2020-04-27] MEDS: MIDODRINE HCL 5MG TABLET PO SCH ×3 (11:01→17:00)
[2020-04-27] MEDS: MULTIVITAMINS,THER W-MINERALS TABLET PO SCH (11:01)
[2020-04-27] MEDS ORDERED: POTASSIUM CHLORIDE 20MEQ/PACKET PO NR (11:30)
[2020-04-27] MEDS ORDERED: MAGNESIUM 2 G PREMIX 50 ML IV NR (12:30)
[2020-04-27 17:17] LABS: PLATELET ESTIMATE MARKEDLY DECREASED
[2020-04-27] MEDS: FILGRASTIM-TBO 480 MCG/0.8 ML SYRINGE SQ SCH (23:11)
[2020-04-28] VITALS (14 sets, daily range): BP systolic 109–144; BP diastolic 54–95
[2020-04-28 01:06] LABS: HEMATOCRIT 25.7 % (36.0-48.0); HEMOGLOBIN 8.9 g/dL (12.0-16.0)
[2020-04-28] MEDS: VANCOMYCIN 1 G PREMIX 200 ML IV SCH ×2 (02:30→15:24)
[2020-04-28] MEDS: CEFEPIME 1,000 MG in DEXTROSE 5% WATER 50 ML IV SCH ×2 (06:12→18:42)
[2020-04-28] MEDS: MIDODRINE HCL 5MG TABLET PO SCH ×3 (09:00→18:43)
[2020-04-28 10:03] LABS: HEMOGLOBIN. 8.6 g/dL (12.0-16.0); MEAN CORPUSCULAR HEMOGLOBIN 32.7 pg (28.0-32.0); MEAN CORPUSCULAR VOLUME 94.7 fL (81.0-99.0); MEAN PLATELET VOLUME 9.9 fl (7.4-10.4); RED BLOOD CELL COUNT 2.64 mill/uL (4.2-5.4)
[2020-04-28 10:10] LABS: CHLORIDE 110 mEq/L (98-107)
[2020-04-28 10:17] LABS: PHOSPHORUS 3.7 mg/dL (2.5-4.9)
[2020-04-28 10:23] LABS: PLATELET 19 x1000/uL (130-400)
[2020-04-28] MEDS: MULTIVITAMINS,THER W-MINERALS TABLET PO SCH (14:27)
[2020-04-28] MEDS: CYCLOBENZAPRINE 10MG TABLET PO PRN (14:29)
[2020-04-28] MEDS: HYDROCODONE/ACETAMINOPHEN 5/325MG TABLET PO PRN ×3 (14:30→23:02)
[2020-04-28 14:42] LABS: PLATELET ESTIMATE MARKEDLY DECREASED
[2020-04-29] VITALS (12 sets, daily range): BP systolic 108–140; BP diastolic 58–73
[2020-04-29] MEDS: CYCLOBENZAPRINE 10MG TABLET PO PRN (08:31)
[2020-04-29] MEDS: MIDODRINE HCL 5MG TABLET PO SCH ×3 (08:32→17:04)
[2020-04-29] MEDS: MULTIVITAMINS,THER W-MINERALS TABLET PO SCH (08:32)
[2020-04-29 09:20] LABS: HEMATOCRIT. 27.1 % (36.0-48.0); HEMOGLOBIN. 9.2 g/dL (12.0-16.0); MEAN CORPUSCULAR HEMOGLOBIN 32.4 pg (28.0-32.0); MEAN PLATELET VOLUME 11.5 fl (7.4-10.4); RED BLOOD CELL COUNT 2.85 mill/uL (4.2-5.4); RED CELL DISTRIBUTION WIDTH 16.5 % (11.6-14.6)
[2020-04-29 09:21] LABS: CHLORIDE 111 mEq/L (98-107)
[2020-04-29 09:26] LABS: PHOSPHORUS 4.4 mg/dL (2.5-4.9)
[2020-04-29 09:43] LABS: PLATELET 31 x1000/uL (130-400)
[2020-04-29 10:21] LABS: PLATELET ESTIMATE MARKEDLY DECREASED
[2020-04-29] MEDS ORDERED: LIDOCAINE HCL/PF 1% 10 MG/ML 5ML VIAL ONE (14:57)
[2020-04-29] MEDS ORDERED: PROPOFOL 200MG/20ML VIAL IV ONE (14:57)
[2020-04-29] MEDS ORDERED: KETOROLAC 30MG/ML VIAL IV PRN (15:30)
[2020-04-29] MEDS ORDERED: ONDANSETRON HCL 4MG/2ML INJ IV PRN (15:30)
[2020-04-29] MEDS ORDERED: FENTANYL CITRATE/PF 50MCG/ML 2ML VIAL IV PRN (15:30)
[2020-04-29] MEDS: HYDROCODONE/ACETAMINOPHEN 5/325MG TABLET PO PRN (22:21)
[2020-04-30] VITALS (9 sets, daily range): BP systolic 101–138; BP diastolic 49–86
[2020-04-30 06:46] LABS: CHLORIDE 114 mEq/L (98-107)
[2020-04-30 06:56] LABS: BASOPHILS % 0.7 % (0.0-2.0); EOSINOPHILS % 0.1 % (0.0-5.0); HEMOGLOBIN. 7.8 g/dL (12.0-16.0); LYMPHOCYTES % 14.1 % (20.0-50.0); MEAN CORPUSCULAR HEMOGLOBIN 32.7 pg (28.0-32.0); MEAN PLATELET VOLUME 10.7 fl (7.4-10.4); MONOCYTES % 2.7 % (2.0-8.0); NEUTROPHILS % 82.4 % (40.0-76.0); RED BLOOD CELL COUNT 2.39 mill/uL (4.2-5.4); RED CELL DISTRIBUTION WIDTH 16.5 % (11.6-14.6)
[2020-04-30 06:58] LABS: PHOSPHORUS 4.7 mg/dL (2.5-4.9)
[2020-04-30 07:57] LABS: PLATELET 35 x1000/uL (130-400)
[2020-04-30] MEDS: MULTIVITAMINS,THER W-MINERALS TABLET PO SCH (08:37)
[2020-04-30] MEDS: MIDODRINE HCL 5MG TABLET PO SCH ×2 (08:37→13:37)
[2020-04-30] MEDS ORDERED: OXYC-100 MT (10:26)
[2020-04-30] MEDS ORDERED: NALO4SPR BOTHNSTRLS (10:26)
[2020-04-30] MEDS ORDERED: MIDO5TAB4 PO (10:26)
[2020-04-30] MEDS ORDERED: OXYCODONE HCL/ACETAMINOPHEN 5/325MG TABLET PO PRN (10:30)
[2020-04-30] MEDS: CYCLOBENZAPRINE 10MG TABLET PO PRN (11:40)
== END 2020-04-30 14:25 | disposition home or self-care (01) | DRG 871 ==
LOC: ER 10:46 → EDBEDREQ 12:13 → ENRESERV 19:43 → 6WST 20:57 → 6EST 22:47 → 5EST 04-24 16:29
PROVIDERS: ADMIT Internal Medicine; ATTEND Internal Medicine
PROC: 02HV33Z Insertion of Infusion Device into Superior Vena Cava, Percutaneous Approach (ICD-10-PCS; principal; 2020-04-25)
PROC: B548ZZA Ultrasonography of Superior Vena Cava, Guidance (ICD-10-PCS; 2020-04-25)
PROC: 30233N1 Transfusion of Nonautologous Red Blood Cells into Peripheral Vein, Percutaneous Approach (ICD-10-PCS; 2020-04-25)
PROC: 30233R1 Transfusion of Nonautologous Platelets into Peripheral Vein, Percutaneous Approach (ICD-10-PCS; 2020-04-26)
PROC: 07DQ3ZZ Extraction of Sternum Bone Marrow, Percutaneous Approach (ICD-10-PCS; 2020-04-29)
DX: A41.9 Sepsis, unspecified organism (principal); E43 Unspecified severe protein-calorie malnutrition; J18.9 Pneumonia, unspecified organism; L03.313 Cellulitis of chest wall; D61.818 Other pancytopenia; D68.59 Other primary thrombophilia; E87.1 Hypo-osmolality and hyponatremia; E87.2 Acidosis; J44.0 Chronic obstructive pulmonary disease with (acute) lower respiratory infection; C79.51 Secondary malignant neoplasm of bone; C78.7 Secondary malignant neoplasm of liver and intrahepatic bile duct; D72.820 Lymphocytosis (symptomatic); D72.821 Monocytosis (symptomatic); E11.9 Type 2 diabetes mellitus without complications; E66.9 Obesity, unspecified; E78.5 Hyperlipidemia, unspecified; E87.6 Hypokalemia; F41.9 Anxiety disorder, unspecified; G89.29 Other chronic pain; C50.919 Malignant neoplasm of unspecified site of unspecified female breast; F17.200 Nicotine dependence, unspecified, uncomplicated; I10 Essential (primary) hypertension; Z96.659 Presence of unspecified artificial knee joint; M19.90 Unspecified osteoarthritis, unspecified site; Z66 Do not resuscitate; Z79.84 Long term (current) use of oral hypoglycemic drugs; Z82.49 Family history of ischemic heart disease and other diseases of the circulatory system; Z90.49 Acquired absence of other specified parts of digestive tract; Z92.3 Personal history of irradiation; Z98.1 Arthrodesis status; Z98.891 History of uterine scar from previous surgery; Z79.2 Long term (current) use of antibiotics; Z79.899 Other long term (current) drug therapy; Z88.8 Allergy status to other drugs, medicaments and biological substances; Z71.3 Dietary counseling and surveillance; Z68.31 Body mass index [BMI] 31.0-31.9, adult
CPT/HCPCS: 36415; 38220; 71045; 71260; 74177; 76700; 76937; 80048; 80053; 80076; 80202; 82378; 82533; 82784; 83605; 83735; 84100; 84145; 84295; 84443; 84484; 84550; 85014; 85018; 85025; 85060; 85097; 85379; 86300; 86334; 86850; 86900; 86920; 87389; 93005; 97110; 97162; 97530; 99285; C1725; C1769; J0456; J0692; J0696; J1442; J1885; J2543; J2704; J3010; J3370; J3475; J3490; J7040; J7060; P9016; P9034; P9047; Q9967

== ENCOUNTER 2020-05-08 10:26 | Inpatient (IN) | payer MEDICARE, MEDICAID ==
[~2020-05-08] VITALS: Ht 165.1 cm; Wt 81.2 kg
[~2020-05-08 10:26] MED LIST changes: -AM250 PO; -ANAS5POW2 *; -HYDR-4001 PO; -HYDR-4009 PO; -HYDR25TA PO; -LISI-604 PO; +MIDO5TAB4 PO; +NALO4SPR BOTHNSTRLS; +OXYC-100 MT; -SIMV80TA90 PO
[2020-05-08] MEDS ORDERED: ONDANSETRON HCL 4MG/2ML INJ IV STA (10:52)
[2020-05-08] MEDS ORDERED: PIPERACILLIN/TAZ 3.375G PREMIX 50 ML IV ONE (11:00)
[2020-05-08] MEDS ORDERED: HYDROCODONE/ACETAMINOPHEN 5/325MG TABLET PO ONE (11:00)
[2020-05-08] MEDS ORDERED: VANCOMYCIN 1 G PREMIX 200 ML IV ONE (11:00)
[2020-05-08 11:59] LABS: HEMATOCRIT. 21.6 % (36.0-48.0); HEMOGLOBIN. 7.2 g/dL (12.0-16.0); MEAN CORPUSCULAR HEMOGLOBIN 32.5 pg (28.0-32.0); MEAN PLATELET VOLUME 8.7 fl (7.4-10.4); PLATELET 126 x1000/uL (130-400); RED BLOOD CELL COUNT 2.23 mill/uL (4.2-5.4); RED CELL DISTRIBUTION WIDTH 16.6 % (11.6-14.6)
[2020-05-08 12:07] LABS: CHLORIDE 111 mEq/L (98-107)
[2020-05-08 12:10] LABS: INR 1.2; PROTHROMBIN TIME 12.9 sec (9.6-11.0)
[2020-05-08 12:48] LABS: PLATELET ESTIMATE SLIGHTLY DECREASED
[2020-05-08] MEDS ORDERED: DIPHENHYDRAMINE 50MG/ML VIAL IV PRN (19:00)
[2020-05-08] MEDS ORDERED: MORPHINE SULFATE 2 MG/ML CPJ (NOT FOR IM USE) IV PRN (19:00)
[2020-05-08] MEDS ORDERED: ACETAMINOPHEN 325MG TABLET PO PRN (19:00)
[2020-05-08] MEDS ORDERED: CLONIDINE 0.1MG TABLET PO PRN (19:00)
[2020-05-08] MEDS ORDERED: PIPERACILLIN/TAZ 3.375G PREMIX 50 ML IV SCH (19:00)
[2020-05-08] MEDS ORDERED: IPRATROPIUM/ALBUTEROL 0.5-3(2.5)MG/3ML NEB HHN PRN (19:00)
[2020-05-08] MEDS ORDERED: ONDANSETRON HCL 4MG/2ML INJ IV PRN (19:00)
[2020-05-08 20:00] VITALS: BP_SYST 173; BP_SYST 178; BP_DIAS 83
[2020-05-08 20:17] LABS: PHOSPHORUS 4.3 mg/dL (2.5-4.9)
[2020-05-08] MEDS ORDERED: DEXTROSE 50% WATER 50ML SYRINGE IV PRN (21:15)
[2020-05-08] MEDS: INSULIN LISPRO 100 UNITS/ML SUBCUT SCH (21:30)
[2020-05-08] MEDS: BLOOD SUGAR DIAGNOSTIC STRIP TEST SCH (21:30)
[2020-05-08] MEDS: PIPERACILLIN/TAZOBACTAM 3.375 G in DEXT 5% WATER 100 ML IV SCH (21:50)
[2020-05-08] MEDS: HYDROCODONE/ACETAMINOPHEN 5/325MG TABLET PO PRN (21:55)
[2020-05-08] MEDS: VANCOMYCIN 750 MG PREMIX 150 ML IV SCH (23:12)
[2020-05-09] VITALS (9 sets, daily range): BP systolic 120–147; BP diastolic 65–80
[2020-05-09] MEDS ORDERED: CEPH500C2 MT (00:39)
[2020-05-09] MEDS ORDERED: LEVO25TA2 PO (05:01)
[2020-05-09] MEDS: PIPERACILLIN/TAZOBACTAM 3.375 G in DEXT 5% WATER 100 ML IV SCH ×3 (05:54→20:50)
[2020-05-09] MEDS: BLOOD SUGAR DIAGNOSTIC STRIP TEST SCH ×4 (07:26→20:50)
[2020-05-09] MEDS: INSULIN LISPRO 100 UNITS/ML SUBCUT SCH ×4 (07:40→20:50)
[2020-05-09] MEDS: VANCOMYCIN 750 MG PREMIX 150 ML IV SCH ×2 (09:18→22:15)
[2020-05-09 09:50] LABS: MEAN CORPUSCULAR HEMOGLOBIN 32.7 pg (28.0-32.0); MEAN CORPUSCULAR VOLUME 97.3 fL (81.0-99.0); MEAN PLATELET VOLUME 8.2 fl (7.4-10.4); PLATELET 114 x1000/uL (130-400); RED BLOOD CELL COUNT 1.96 mill/uL (4.2-5.4); RED CELL DISTRIBUTION WIDTH 15.8 % (11.6-14.6)
[2020-05-09 09:56] LABS: HEMATOCRIT. 19.1 % (36.0-48.0); HEMOGLOBIN. 6.4 g/dL (12.0-16.0)
[2020-05-09 10:05] LABS: CHLORIDE 114 mEq/L (98-107)
[2020-05-09 10:12] LABS: HDL CHOLESTEROL 15 mg/dL (40-59); LDL CHOLESTEROL 40 mg/dL (5-100)
[2020-05-09] MEDS ORDERED: SODIUM BICARBONATE 4% (2.4MEQ) 5ML VIAL IV ONE (12:06)
[2020-05-09] MEDS ORDERED: LIDOCAINE HCL 1% 20ML VIAL (Pyxis) INJ ONE (12:06)
[2020-05-09] MEDS: HYDROCODONE/ACETAMINOPHEN 5/325MG TABLET PO PRN (13:32)
[2020-05-09 21:01] LABS: HEMATOCRIT 23.5 % (36.0-48.0); HEMOGLOBIN 8.2 g/dL (12.0-16.0)
[2020-05-09 21:08] LABS: INR 1.2; PROTHROMBIN TIME 12.9 sec (9.6-11.0)
[2020-05-09] MEDS: MAGNESIUM HYDROXIDE 400MG/5ML 30ML UDC PO PRN ×2 (22:20→23:10)
[2020-05-10] VITALS: BP 142/79
[2020-05-10 04:00] VITALS: BP 135/75
[2020-05-10] MEDS: PIPERACILLIN/TAZOBACTAM 3.375 G in DEXT 5% WATER 100 ML IV SCH ×3 (05:49→22:10)
[2020-05-10 06:50] VITALS: BP 135/89
[2020-05-10 08:00] VITALS: BP 133/72
[2020-05-10] MEDS: VANCOMYCIN 750 MG PREMIX 150 ML IV SCH (09:19)
[2020-05-10 11:03] LABS: CHLORIDE 112 mEq/L (98-107)
[2020-05-10 13:45] LABS: PLATELET ESTIMATE DECREASED
[2020-05-10 20:00] VITALS: BP 135/76
[2020-05-10] MEDS: HYDROCODONE/ACETAMINOPHEN 5/325MG TABLET PO PRN (22:22)
[2020-05-11] VITALS: BP 131/73
[2020-05-11 04:00] VITALS: BP 130/75
[2020-05-11] MEDS: PIPERACILLIN/TAZOBACTAM 3.375 G in DEXT 5% WATER 100 ML IV SCH (06:22)
[2020-05-11 07:29] LABS: BASOPHILS % 0.9 % (0.0-2.0); HEMATOCRIT. 22.4 % (36.0-48.0); HEMOGLOBIN. 7.7 g/dL (12.0-16.0); MEAN CORPUSCULAR HEMOGLOBIN 32.8 pg (28.0-32.0); MEAN CORPUSCULAR VOLUME 94.8 fL (81.0-99.0); MEAN PLATELET VOLUME 8.4 fl (7.4-10.4); MONOCYTES % 8.7 % (2.0-8.0); NEUTROPHILS % 74.4 % (40.0-76.0); PLATELET 123 x1000/uL (130-400); RED BLOOD CELL COUNT 2.36 mill/uL (4.2-5.4); RED CELL DISTRIBUTION WIDTH 15.8 % (11.6-14.6)
[2020-05-11 07:33] LABS: CHLORIDE 112 mEq/L (98-107)
[2020-05-11 08:00] VITALS: BP 143/81
[2020-05-11 12:00] VITALS: BP 141/80
[2020-05-11 16:00] VITALS: BP 131/69
[2020-05-11] MEDS: VANCOMYCIN 750 MG PREMIX 150 ML IV SCH (17:21)
[2020-05-11 20:00] VITALS: BP 139/89
[2020-05-12] VITALS (7 sets, daily range): BP systolic 137–164; BP diastolic 58–89
[2020-05-12] MEDS: VANCOMYCIN 750 MG PREMIX 150 ML IV SCH (17:39)
[2020-05-12] MEDS ORDERED: AMLO5TAB88 MT (18:17)
[2020-05-12] MEDS ORDERED: SULF1TAB48 MT (18:17)
== END 2020-05-12 20:28 | disposition home or self-care (01) | DRG 871 ==
LOC: ER 10:26 → 6EST 12:20 → EDBEDREQTM 12:22 → EDBEDREQ 12:22 → ENRESERV 16:25
PROVIDERS: ADMIT Internal Medicine; ATTEND Internal Medicine
PROC: 02HV33Z Insertion of Infusion Device into Superior Vena Cava, Percutaneous Approach (ICD-10-PCS; principal; 2020-05-08)
PROC: B518ZZA Fluoroscopy of Superior Vena Cava, Guidance (ICD-10-PCS; 2020-05-08)
PROC: B548ZZA Ultrasonography of Superior Vena Cava, Guidance (ICD-10-PCS; 2020-05-08)
PROC: 30233N1 Transfusion of Nonautologous Red Blood Cells into Peripheral Vein, Percutaneous Approach (ICD-10-PCS; 2020-05-09)
DX: A41.9 Sepsis, unspecified organism (principal); E43 Unspecified severe protein-calorie malnutrition; D61.818 Other pancytopenia; N13.30 Unspecified hydronephrosis; C79.51 Secondary malignant neoplasm of bone; N61.1 Abscess of the breast and nipple; M19.90 Unspecified osteoarthritis, unspecified site; E11.9 Type 2 diabetes mellitus without complications; E78.5 Hyperlipidemia, unspecified; F17.200 Nicotine dependence, unspecified, uncomplicated; F41.9 Anxiety disorder, unspecified; I10 Essential (primary) hypertension; G89.29 Other chronic pain; M54.5 Low back pain; R26.9 Unspecified abnormalities of gait and mobility; E66.9 Obesity, unspecified; J44.9 Chronic obstructive pulmonary disease, unspecified; D64.9 Anemia, unspecified; K76.0 Fatty (change of) liver, not elsewhere classified; Z79.891 Long term (current) use of opiate analgesic; Z85.3 Personal history of malignant neoplasm of breast; Z79.84 Long term (current) use of oral hypoglycemic drugs; Z92.3 Personal history of irradiation; Z82.49 Family history of ischemic heart disease and other diseases of the circulatory system; Z88.8 Allergy status to other drugs, medicaments and biological substances; Z79.899 Other long term (current) drug therapy; Z98.1 Arthrodesis status; Z90.49 Acquired absence of other specified parts of digestive tract; Z68.29 Body mass index [BMI] 29.0-29.9, adult; Z17.0 Estrogen receptor positive status [ER+]
CPT/HCPCS: 36415; 36573; 71045; 76641; 76937; 80048; 80053; 80061; 80202; 82962; 83036; 83605; 83735; 84100; 84145; 84443; 85014; 85018; 85025; 85049; 85384; 86850; 86870; 86900; 86920; 87070; 87077; 93005; 93970; 99285; C1725; J2405; J2543; J3370; J3490; J7060; P9016

== ENCOUNTER 2022-10-02 16:54 | Emergency (ER) | payer MEDICARE, OTHER ==
[~2022-10-02] VITALS: Ht 152.4 cm; Wt 55.0 kg
[~2022-10-02 16:54] MED LIST changes: +AMLO5TAB88 MT; +AMOX1TAB16 PO; +DEXTL PO; +LEVO25TA2 PO; -MIDO5TAB4 PO; +NAPR-681 PO; +ONDA4TAB50 PO; +POTA10CA42 PO; +SULF1TAB48 MT
[2022-10-02 17:53] VITALS: BP 131/64
[2022-10-02] MEDS ORDERED: TETRACAINE 0.5% OPHTH DROPS 4ML LEFTEYE ONE (18:45)
[2022-10-02] MEDS ORDERED: FLUORESCEIN SODIUM 1MG/STRIP LEFTEYE ONE (18:45)
== END 2022-10-02 20:20 | disposition home or self-care (01) ==
LOC: ER 16:54
DX: H11.32 Conjunctival hemorrhage, left eye (principal); E11.9 Type 2 diabetes mellitus without complications; I10 Essential (primary) hypertension; Z85.9 Personal history of malignant neoplasm, unspecified; Z88.8 Allergy status to other drugs, medicaments and biological substances
CPT/HCPCS: 99283

== ENCOUNTER 2023-07-17 15:07 | Inpatient (IN) | payer BC, MEDICAID ==
[~2023-07-17] VITALS: Ht 167.6 cm; Wt 60.8 kg
[~2023-07-17 15:07] MED LIST changes: -AMLO5TAB88 MT; -AMOX1TAB16 PO; -DEXTL PO; +FURO-151 MT; +HYDR-4001 PO; -LEVO25TA2 PO; -METF-414 PO; -NALO4SPR BOTHNSTRLS; -NAPR-681 PO; -ONDA4TAB50 PO; -OXYC-100 MT; +POTA-205 MT; -POTA10CA42 PO; -SIMV-43 PO; -SULF1TAB48 MT
[2023-07-17 16:24] LABS: BASOPHILS % 1.1 % (0.0-2.0); DIFFERENTIAL COMMENT 0; EOSINOPHILS % 6.7 % (0.0-5.0); HEMATOCRIT. 35.2 % (36.0-48.0); HEMOGLOBIN. 11.8 g/dL (12.0-16.0); LYMPHOCYTES % 19.8 % (20.0-50.0); MEAN CORPUSCULAR HEMOGLOBIN 35.3 pg (28.0-32.0); MEAN CORPUSCULAR HGB CONC 33.6 g/dL (31.0-37.0); MEAN CORPUSCULAR VOLUME 105.2 fL (81.0-99.0); MEAN PLATELET VOLUME 9.1 fl (7.4-10.4); MONOCYTES % 11.6 % (2.0-8.0); NEUTROPHILS % 60.8 % (40.0-76.0); PLATELET 136 x1000/uL (130-400); RED BLOOD CELL COUNT 3.35 mill/uL (4.2-5.4); RED CELL DISTRIBUTION WIDTH 17.3 % (11.6-14.6); WHITE BLOOD COUNT 3.7 x1000/uL (4.5-11.0)
[2023-07-17 16:39] LABS: INR 1.1
[2023-07-17 16:45] LABS: CHLORIDE 101 mEq/L (98-107); INDEX HEMOLYSI 1 (1-3); INDEX ICTERIC 1 (1-4); INDEX LIPEMIC 1 (1-3); POTASSIUM 3.5 mEq/L (3.5-5.1); SODIUM 136 mEq/L (136-145)
[2023-07-17 16:55] LABS: ALBUMIN 3.1 g/dL (3.4-5.0); CALCIUM 10.6 mg/dL (8.5-10.1); CARBON DIOXIDE 29 mEq/L (21-32); CREATININE 0.9 mg/dL (0.6-1.3); GLUCOSE 94 mg/dL (70-105); PROTEIN TOTAL 6.6 g/dL (6.0-8.3); UREA NITROGEN BLOOD 14 mg/dL (7-21)
[2023-07-17 16:56] LABS: ALANINE AMINOTRANSFERASE 21 IU/L (13-61); ASPARTATE AMINOTRANSFERASE 105 IU/L (15-37); BILIRUBIN TOTAL 1.3 mg/dL (0.1-1.0); NT PRO B-TYPE NATRIURETIC PEP 571 pg/mL (5-125)
[2023-07-17 17:00] LABS: TROPONIN I HIGH SENSITIVITY 59 ng/L (<54)
[2023-07-17] MEDS ORDERED: ACETAMINOPHEN 325MG TABLET PO ONE (20:45)
[2023-07-18] VITALS (7 sets, daily range): BP systolic 91–112; BP diastolic 50–63; PULSE 74–88; RESP 16–20; TEMP 97.9–98.4
[2023-07-18] MEDS ORDERED: MAGNESIUM/ALUMINUM HYDROXIDE/SIMETHICONE 30ML UDC PO PRN (10:45)
[2023-07-18] MEDS ORDERED: ONDANSETRON HCL 4MG/2ML INJ IV PRN (10:45)
[2023-07-18] MEDS ORDERED: CLONIDINE 0.1MG TABLET PO PRN (10:45)
[2023-07-18] MEDS ORDERED: HYDROCODONE/ACETAMINOPHEN 5/325MG TABLET PO PRN (10:45)
[2023-07-18] MEDS ORDERED: ACETAMINOPHEN 325MG TABLET PO PRN (10:45)
[2023-07-18] MEDS ORDERED: NALOXONE HCL 0.4MG/ML VIAL IV PRN (11:00)
[2023-07-18] MEDS: ENOXAPARIN 40MG/0.4ML SYR SUBCUT SCH (11:30)
[2023-07-18] MEDS: IPRATROPIUM/ALBUTEROL 0.5-3(2.5)MG/3ML NEB HHN PRN (11:49)
[2023-07-18 13:19] LABS: HEMATOCRIT 33.4 % (36.0-48.0); HEMOGLOBIN 11.1 g/dL (12.0-16.0); MEAN CORPUSCULAR HEMOGLOBIN 34.6 pg (28.0-32.0); MEAN CORPUSCULAR HGB CONC 33.1 g/dL (31.0-37.0); MEAN CORPUSCULAR VOLUME 104.3 fL (81.0-99.0); PLATELET 110 x1000/uL (130-400); RED CELL DISTRIBUTION WIDTH 17.3 % (11.6-14.6); WHITE BLOOD COUNT 2.9 x1000/uL (4.5-11.0)
[2023-07-18 13:47] LABS: CHLORIDE 103 mEq/L (98-107); INDEX HEMOLYSI 1 (1-3); INDEX ICTERIC 1 (1-4); INDEX LIPEMIC 1 (1-3); POTASSIUM 3.5 mEq/L (3.5-5.1); SODIUM 137 mEq/L (136-145)
[2023-07-18 13:58] LABS: ALANINE AMINOTRANSFERASE 19 IU/L (13-61); ALBUMIN 2.8 g/dL (3.4-5.0); ASPARTATE AMINOTRANSFERASE 97 IU/L (15-37); BILIRUBIN TOTAL 1.4 mg/dL (0.1-1.0); CALCIUM 10.6 mg/dL (8.5-10.1); CARBON DIOXIDE 26 mEq/L (21-32); CREATININE 0.7 mg/dL (0.6-1.3); GLUCOSE 84 mg/dL (70-105); TROPONIN I HIGH SENSITIVITY 50 ng/L (<54); UREA NITROGEN BLOOD 16 mg/dL (7-21)
[2023-07-18] MEDS ORDERED: POTASSIUM CHLORIDE 20MEQ/PACKET PO SCH (16:15)
[2023-07-18] MEDS ORDERED: FUROSEMIDE 40MG/4ML VIAL IVP SCH (16:30)
[2023-07-18] MEDS ORDERED: IOHEXOL-350 100 ML BOTTLE ONE (20:45)
[2023-07-18] MEDS: GUAIFENESIN 600MG ER TABLET PO SCH (21:03)
[2023-07-19] VITALS (8 sets, daily range): BP systolic 95–139; BP diastolic 47–60; PULSE 77–88; RESP 16–18; TEMP 97.7–98.1; O2SAT 94–95
[2023-07-19 07:31] LABS: BASOPHILS % 1.3 % (0.0-2.0); DIFFERENTIAL COMMENT 0; EOSINOPHILS % 4.8 % (0.0-5.0); HEMATOCRIT. 33.5 % (36.0-48.0); HEMOGLOBIN. 11.2 g/dL (12.0-16.0); LYMPHOCYTES % 21.3 % (20.0-50.0); MEAN CORPUSCULAR HEMOGLOBIN 35.2 pg (28.0-32.0); MEAN CORPUSCULAR HGB CONC 33.5 g/dL (31.0-37.0); MEAN CORPUSCULAR VOLUME 104.9 fL (81.0-99.0); MEAN PLATELET VOLUME 9.8 fl (7.4-10.4); MONOCYTES % 12.2 % (2.0-8.0); NEUTROPHILS % 60.4 % (40.0-76.0); PLATELET 114 x1000/uL (130-400); RED CELL DISTRIBUTION WIDTH 17.2 % (11.6-14.6); WHITE BLOOD COUNT 3.1 x1000/uL (4.5-11.0)
[2023-07-19 08:00] LABS: ALANINE AMINOTRANSFERASE 18 IU/L (13-61); ALBUMIN 2.7 g/dL (3.4-5.0); ASPARTATE AMINOTRANSFERASE 102 IU/L (15-37); BILIRUBIN DIRECT 0.5 mg/dL (0.0-0.2); BILIRUBIN TOTAL 1.6 mg/dL (0.1-1.0); CALCIUM 10.6 mg/dL (8.5-10.1); CARBON DIOXIDE 26 mEq/L (21-32); CHLORIDE 104 mEq/L (98-107); CHOLESTEROL 94 mg/dL (<200); CREATININE 0.9 mg/dL (0.6-1.3); GLUCOSE 79 mg/dL (70-105); HDL CHOLESTEROL 31 mg/dL (40-59); INDEX HEMOLYSI 1 (1-3); INDEX ICTERIC 1 (1-4); INDEX LIPEMIC 1 (1-3); LDL CHOLESTEROL 57 mg/dL (5-100); PHOSPHORUS 3.5 mg/dL (2.5-4.9); POTASSIUM 3.6 mEq/L (3.5-5.1); SODIUM 140 mEq/L (136-145); T4 FREE 1.47 ng/dL (0.76-1.46); TRIGLYCERIDE 95 mg/dL (0-150); TROPONIN I HIGH SENSITIVITY 50 ng/L (<54); UREA NITROGEN BLOOD 17 mg/dL (7-21)
[2023-07-19] MEDS: GUAIFENESIN 600MG ER TABLET PO SCH ×2 (08:23→20:41)
[2023-07-19] MEDS: ENOXAPARIN 40MG/0.4ML SYR SUBCUT SCH (11:27)
[2023-07-19] MEDS: IPRATROPIUM/ALBUTEROL 0.5-3(2.5)MG/3ML NEB HHN PRN ×2 (16:25→22:20)
[2023-07-19 20:59] LABS: INR 1.1; PARTIAL THROMBOPLASTIN TIME 32.6 sec (23.4-31.0)
[2023-07-20] VITALS: BP 107/52; PULSE 98; RESP 18; TEMP 97.9
[2023-07-20 04:00] VITALS: BP 103/44; PULSE 86; RESP 16; TEMP 97.1
[2023-07-20 07:09] LABS: BASOPHILS % 0.7 % (0.0-2.0); DIFFERENTIAL COMMENT 0; EOSINOPHILS % 2.8 % (0.0-5.0); HEMATOCRIT. 31.7 % (36.0-48.0); HEMOGLOBIN. 10.8 g/dL (12.0-16.0); LYMPHOCYTES % 17.6 % (20.0-50.0); MEAN CORPUSCULAR HEMOGLOBIN 35.2 pg (28.0-32.0); MEAN CORPUSCULAR HGB CONC 33.9 g/dL (31.0-37.0); MEAN CORPUSCULAR VOLUME 103.8 fL (81.0-99.0); MEAN PLATELET VOLUME 10.1 fl (7.4-10.4); MONOCYTES % 12.4 % (2.0-8.0); NEUTROPHILS % 66.5 % (40.0-76.0); PLATELET 118 x1000/uL (130-400); RED BLOOD CELL COUNT 3.06 mill/uL (4.2-5.4); RED CELL DISTRIBUTION WIDTH 16.7 % (11.6-14.6); WHITE BLOOD COUNT 3.9 x1000/uL (4.5-11.0)
[2023-07-20 08:00] VITALS: BP 105/60; PULSE 84; RESP 19; TEMP 98
[2023-07-20] MEDS ORDERED: SODIUM BICARBONATE 4% (2.4MEQ) 5ML VIAL IV ONE (08:10)
[2023-07-20] MEDS: GUAIFENESIN 600MG ER TABLET PO SCH (08:13)
[2023-07-20 08:38] LABS: CHLORIDE 102 mEq/L (98-107); INDEX HEMOLYSI 1 (1-3); INDEX ICTERIC 1 (1-4); INDEX LIPEMIC 1 (1-3); POTASSIUM 3.7 mEq/L (3.5-5.1); SODIUM 136 mEq/L (136-145)
[2023-07-20 08:55] LABS: ALANINE AMINOTRANSFERASE 16 IU/L (13-61); ALBUMIN 2.8 g/dL (3.4-5.0); ASPARTATE AMINOTRANSFERASE 98 IU/L (15-37); BILIRUBIN DIRECT 0.4 mg/dL (0.0-0.2); BILIRUBIN TOTAL 1.3 mg/dL (0.1-1.0); CALCIUM 10.5 mg/dL (8.5-10.1); CARBON DIOXIDE 26 mEq/L (21-32); CREATININE 0.8 mg/dL (0.6-1.3); GLUCOSE 96 mg/dL (70-105); LACTATE DEHYDROGENASE 288 IU/L (100-240); PHOSPHORUS 3.7 mg/dL (2.5-4.9); UREA NITROGEN BLOOD 19 mg/dL (7-21)
[2023-07-20 10:24] LABS: PROTEIN BODY FLUID 2.9 gm/dL
[2023-07-20 11:22] LABS: BODY FLUID MONOCYTES 1 %; BODY FLUID RBC 630 /cu mm (0-2000); BODY FLUID WBC 135 /cu mm (0-200)
[2023-07-20 12:00] VITALS: BP 100/58; PULSE 82; RESP 18; TEMP 98.2
[2023-07-20 14:27] VITALS: BP 100/60; PULSE 82; TEMP 98.2; O2SAT 97
[2023-07-20 16:00] VITALS: BP 102/60; PULSE 84; RESP 18; TEMP 98.6
== END 2023-07-20 17:40 | disposition home or self-care (01) | DRG 597 ==
LOC: ER 15:07 → MICUSO 21:08 → EDBEDREQTM 21:28 → EDBEDREQ 21:28 → 8WST 07-18 02:13
PROVIDERS: ADMIT Internal Medicine; ATTEND Internal Medicine
PROC: 0W9930Z Drainage of Right Pleural Cavity with Drainage Device, Percutaneous Approach (ICD-10-PCS; principal; 2023-07-20)
DX: C50.919 Malignant neoplasm of unspecified site of unspecified female breast (principal); J96.00 Acute respiratory failure, unspecified whether with hypoxia or hypercapnia; J90 Pleural effusion, not elsewhere classified; C78.7 Secondary malignant neoplasm of liver and intrahepatic bile duct; C79.51 Secondary malignant neoplasm of bone; D61.818 Other pancytopenia; E11.9 Type 2 diabetes mellitus without complications; I10 Essential (primary) hypertension; E87.70 Fluid overload, unspecified; Z95.828 Presence of other vascular implants and grafts; Z85.3 Personal history of malignant neoplasm of breast; Z85.118 Personal history of other malignant neoplasm of bronchus and lung
CPT/HCPCS: 32555; 36415; 71045; 71275; 80048; 80053; 80061; 80076; 82962; 83615; 83735; 83880; 84100; 84439; 84443; 84484; 85025; 85027; 85379; 88108; 93005; 93970; 94640; 99285; J1650; J1940; J3490; Q9967